=== PATIENT | female | born 1990 | race Caucasian/White ===

== ENCOUNTER 2023-10-03 08:30 | Inpatient (IN) | payer OTHER, SELFPAY ==
[2023-10-03] VITALS (46 sets, daily range): BP systolic 133–212; BP diastolic 57–106; PULSE 53–85; RESP 14–18; TEMP 36.4–37; O2SAT 97–100; BMI 27.8
[2023-10-03 07:59] LABS: Amnisure Rom* POSITIVE
[2023-10-03 08:22] LABS: Hematocrit 39.8 % (33.0-51.0); Hemoglobin* 13.2 gm/dL (12.0-16.0); Mean Corpuscular HGB Conc 33 gm/dL (32-36); Mean Corpuscular Hemoglobin 30 pg (26-34); Mean Corpuscular Volume 89 fL (80-100); Platelet Count* 188 K/uL (140-440); Red Blood Count 4.46 m/uL (4.00-5.20); White Blood Count* 16.23 K/uL (4.50-11.00)
[2023-10-03 08:23] LABS: Slide Review Reflex No
[2023-10-03] MEDS: LACTATED RINGERS 1000 ML 1,000 ML 125 ML IV (08:27)
[2023-10-03] MEDS: AMPICILLIN 2 GM in 0.9 % SODIUM CHLORIDE Mini-bag 100 ML IVPB (08:27)
[2023-10-03] MEDS: BETAMETHASONE SOD PHOS/ACETATE 6 MG/ML ML 12 MG IM (08:28)
[2023-10-03 08:39] LABS: Alanine Aminotransferase* 14 U/L (4-35); Aspartate Amino Transferase* 20 U/L (12-35); Blood Urea Nitrogen* 16 mg/dL (5-24); Creatinine* 0.6 mg/dL (0.5-1.5); Estimated Glomerular Filt Rate 123 ml/min
[2023-10-03 08:40] LABS: Creatinine Urine 19.2 mg/dL
--- NOTE | 2023-10-03 08:42 | PM.OBCN1 ---
OB - CN: HPI Date of Consult Time Seen by Provider: 08:42 Date Seen: 10/03/23 Patient: Luis Manuel Patient Consult date: 10/03/23 Requesting Physician: Christine Snell MD Primary Care Provider: Yajaira Hoty MD Consult Narrative Narrative: The patient is a 32 year old G 1 P 0 at 34 and 1/7 weeks gestation that was admitted to the Center on 10/03/23 for spontaneous rupture of membranes at 5:30 a.m. this morning, clear fluid. GBS status unknown. When she arrived at the Center she began complaining of painful contractions. When the nurse checked her cervix there was no presenting part and the cervix was 5-6 cm dilated the patient was in active labor. On ultrasound the baby's position is transverse, back down. In addition, the patient has elevated blood pressures with a maximum blood pressure of 158/104 most recent blood pressure 138/94. I recommended a primary low-transverse delivery due to malpresentation in active labor. History of Present Dating criteria: based on LMP care: good care Ultrasounds: normal 1st trimester US and normal mid trimester US complications: gestational hypertension History History 2 Elective abortions Para 0 Spontaneous abortions Hx # Term Pregnancies Ectopic pregnancies Hx # Pregnancies Multiple births Number of Living Children 0 PFSH PFSH Surgical History (Updated 10/03/23 @ 08:47 by Christine Snell MD) Status post primary low transverse section (10/03/23) ?Z98.891 - History of uterine scar from previous surgery (ICD-10) Social History Smoking Status: Never smoker Meds Home Medications and Allergies Home Medications ?Medication ?Instructions ?Recorded ?Confirmed ?Type vit no.37-iron fum 29 mg tab PO 10/03/23 History iron-folic acid 1 mg chewable tablet (PreNata) Allergies Allergy/AdvReac Type Severity Reaction Status Date / Time Sulfa (Sulfonamide Allergy Verified 10/03/23 08:12 Antibiotics) OB - H&P: Exam Physical Exam: Vital signs: Temp Pulse BP Pulse Ox 98.1 F 85 158/104 H 99 10/03/23 07:24 10/03/23 08:26 10/03/23 08:26 10/03/23 07:24 Narrative: General: Patient appears uncomfortable with contractions. Vital signs included in the patient's medical record Heart: Regular rate and rhythm without gallop or murmur Chest: Clear to auscultation bilaterally Abdomen: Gravid, tender with contractions. presentation: Back down transverse by bedside ultrasound External monitor: 140s, moderate variability, accelerations: Present, decelerations: Absent, reactive. SVE per nursin-6 cm/75%/high Extremities: No pain, edema, cyanosis or clubbing. OB - Results Labs Labs: Short CBC 10/03/23 Range/Units 08:15 WBC 16.23 H (4.50-11.00) K/uL Hgb 13.2 (12.0-16.0) gm/dL Hct 39.8 (33.0-51.0) % Plt Count 188 (140-440) K/uL OB - CN: A/P Assessment and Plan (1) Gestational hypertension: Status: Acute (2) malpresentation, delivered, current hospitalization: Status: Acute (3) Status post primary low transverse section: Status: Acute (4) premature rupture of membranes (PPROM) with onset of labor after 24 hours of rupture in third trimester, antepartum: Status: Acute (5) labor with term delivery: Status: Deleted Assessment and Plan: 1. Consent form reviewed and signed for primary low-transverse section 2. Will moved to operating room at the earliest convenience. (6) labor in third trimester with delivery: Status: Acute
[2023-10-03 08:46] LABS: Protein Creatinine Ratio Urine 23.23 (0-0.19); Total Protein Urine 446 mg/dL
--- NOTE | 2023-10-03 08:48 | PM.OBHPAP1 ---
OB - H&P; HPI Antepartum History of Present Illness Time Seen by Provider: 08:20 Date Seen: 10/03/23 Chief complaint: maternity Narrative: Nani Zelaya is a 32 yo at 34w1d who presents today with PPROM. Had leaking starting around 5:30 AM today. Fluid was reportedly pink-tinged. Continuing to note clear fluid per vagina. Since arriving the Center, she has developed contractions. Of note, blood pressures have been elevated since arrival including one severe range pressure - initial pressure 176/101, most recent 138/94. History of Present care: good care Labs Blood type: A (+) positive Rubella: immune RPR/VDLR: nonreactive GBS status: unknown HBsAG: negative Meds Home Medications and Allergies Home Medications ?Medication ?Instructions ?Recorded ?Confirmed ?Type vit no.37-iron fum 29 mg tab PO 10/03/23 History iron-folic acid 1 mg chewable tablet (PreNata) Allergies Allergy/AdvReac Type Severity Reaction Status Date / Time Sulfa (Sulfonamide Allergy Verified 10/03/23 08:12 Antibiotics) OB - H&P: Exam Physical Exam: Vital signs: Temp Pulse BP Pulse Ox 98.1 F 72 138/94 H 99 10/03/23 07:24 10/03/23 08:42 10/03/23 08:42 10/03/23 07:24 Narrative: Gen: alert, appears uncomfortable with contractions Resp: unlabored breathing between contractions on room air CV: extremities warm and well perfused Abd: gravid : cervix 5 cm per RN exam Bedside US: fetus in transverse lie with head on maternal L OB - Results Labs Labs: Short CBC 10/03/23 Range/Units 08:15 WBC 16.23 H (4.50-11.00) K/uL Hgb 13.2 (12.0-16.0) gm/dL Hct 39.8 (33.0-51.0) % Plt Count 188 (140-440) K/uL BMP 10/03/23 08:15 BUN 16 Creatinine 0.6 Liver Function 10/03/23 Range/Units 08:15 AST 20 (12-35) U/L ALT 14 (4-35) U/L OB - A/P Antepartum Assessment and Plan (1) labor in third trimester with delivery: Status: Acute (2) premature rupture of membranes (PPROM) with onset of labor after 24 hours of rupture in third trimester, antepartum: Status: Acute (3) Gestational hypertension: Status: Acute Plan OB provider, Dr. Snell notified. Plan to deliver via LTCS. See consult note. Given prematurity, plan to transfer upon delivery. Contacted NICU at [facility]. Spoke with Dr. Ty who accepted patient. Baby will be transported by air.
--- NOTE | 2023-10-03 09:03 | P.PCN_ITS ---
Procedure Note Time Seen by Provider: : Date Seen: 10/03/23 Date of procedure: 10/03/23 Will [facility] bill your pro fee for this procedure?: Yes Procedure: Preoperative diagnosis: [id number]-[id number]-[id number]-old 1 para 0 at 34 and 1/7 weeks PPROM labor malpresentation: back down, transverse Gestational hypertension Postoperative diagnosis: Same Procedure: Primary low-transverse section Anesthesia: Spinal Surgeon: Christine Snell MD Director Of Recruitment And Admissions: PALMER Pompa Quantitative blood loss: 390 mL IV Fluid: 1300 mL UOP: 150 mL Specimen: Placenta to pathology Drain(s): Blair Findings: An internal cephalic version was performed in order to deliver the : The converted from transverse back down with the vertex in the left lower quadrant to vertex for delivery. A live female was delivered from the direct OA position at 9:34 am. Apgars were 7 at 1 min and 8 at 5 min, respectively. Infant was requiring CPAP and transferred to intensive care unit. weight: Pending. Nuchal cord(s): No. The placenta was delivered spontaneously and complete at 9:36 a.m. Amniotic fluid: clear. Normal uterus, fallopian tubes and ovaries were noted. Procedure: Nani was taken to the OR where spinal anesthetic was found be adequate. A Blair catheter was placed. The patient was then placed in the dorsal supine position with a leftward tilt. She was then prepped and draped in a normal sterile manner. A Pfannenstiel skin incision was made and carried through sharply to the underlying layer of fascia. Fascia was incised in the midline and this incision carried laterally with Dc scissors. The superior aspect of fascial incision was grasped with Mauro clamps, tented up, and the rectus muscles dissected off with a combination of blunt and sharp dissection. The inferior aspect of the fascial incision was grasped with Mauro clamps, tented up and again the rectus muscles dissected off with a combination of blunt and sharp dissection. The rectus muscles were in the midline. The peritoneum was entered bluntly. This opening was extended bluntly. An Silvino-O self-retaining retractor was placed. A bladder flap was not created. Uterus was incised in a low transverse manner in the midline. This incision carried laterally with blunt pressure on the inferior and superior aspects of the uterine incision. The amniotic sac was ruptured. An internal cephalic version was performed then the infant's head and body was delivered atraumatically. The cord was clamped and cut immediately. The infant was shown to the patient and her support person and then handed to waiting pediatric and nursing staff. The placenta was delivered spontaneously. The uterus was cleared of clots and debris. The uterine incision was re-approximated with the uterus in vivo. The 1st layer using 0-Vicryl in a running, locked manner. The 2nd layer using 0-Monocryl in a running, vertical, imbricating layer. Additional sutures needed for hemostasis: Yes: 2 [id number] sutures using 0 Vicryl and 2 [id number]-[id number] sutures using 2-0 chromic. Judith was applied to the uterine incision. Excellent hemostasis was verified. The Silvino retractor was removed. The rectus muscles were not reapproximated. The rectus muscles were then closely inspected to verify hemostasis. Hemostasis was obtained with bipolar cautery. The fascia was then re-approximated using 0-Maxon loop in a running manner. The subcutaneous tissue was then irrigated with saline and hemostasis obtained with bipolar cautery. The subcutaneous tissue was re-approximated using 3-0 plain gut interrupted sutures. The skin was reapproximated using 4-0 Monocryl in a running subcuticular manner. Exophin skin adhesive and a Mepaplex dressing were applied. The patient tolerated this procedure well. Sponge, lap and instrument counts were correct x2 active to the procedure. Patient was taken to the recovery area in stable condition. The patient received 2 g of IV Ancef and 500 mg IV azithromycin prior to skin incision.
[2023-10-03] MEDS: CEFAZOLIN 2 GM INJ IVP (09:10)
[2023-10-03] MEDS: AZITHROMYCIN 500 MG in 0.9 % SODIUM CHLORIDE 250 ml 250 ML 255 MG IVPB (09:22)
--- NOTE | 2023-10-03 10:41 | W.PM.NB ---
Nerve Block Nerve Block Time Seen by Provider: 10:25 Date Seen: 10/03/23 Type of block requested by surgeon for post-operative analgesia: TAP Side: bilateral Time out performed: Yes Verification of patient name: Yes Verification of date of : Yes Site marking: not applicable Name of person performing procedure: Spencer Marroquin Continuous monitoring Was continuous monitoring of O2 sat, B/P, lunchroom monitor, recorded every 15 minutes?: Yes Procedure Ultrasound guided. Images saved: Yes Medications given in 5ml increments after negative aspiration: Marcaine %: 0.25 mL: 30 Needle gauge: 20 and Exparel mL: 10 Needle gauge: 20 Patient tolerated procedure well: Yes Block Charges Block Charge (with Pro Fee): TAP Bilateral Use of Ultrasound Machine for Block: Yes- US Guidance/pain block
--- NOTE | 2023-10-03 10:43 | P.ANES_ITS ---
Anesthesia Charges Start Date/Time Anesthesia Start Date: 10/03/23 Anesthesia Start Time: 09:06 Stop Date/Time Anesthesia Stop Date: 10/03/23 Anesthesia Stop Time: 10:33 Summary Emergency: [facility]
--- NOTE | 2023-10-03 11:04 | W.ANESCHARGE ---
Anesthesia Charges Start Date/Time Anesthesia Start Date: 10/03/23 Anesthesia Start Time: 09:06 Stop Date/Time Anesthesia Stop Date: 10/03/23 Anesthesia Stop Time: 10:33 Summary Emergency: MDA
[2023-10-03 11:28] LABS: Total Protein Urine 19 mg/dL
[2023-10-03 11:29] LABS: Creatinine Urine 126.9 mg/dL; Protein Creatinine Ratio Urine 0.15 (0-0.19)
[2023-10-03] MEDS: LABETALOL HCL 5 MG/ML inj IVP ×2 (11:34→12:05)
[2023-10-03] MEDS: MAGNESIUM IV 4 GM/100 ML PIGGYBACK IVPB (12:03)
[2023-10-03] MEDS: NIFEdipine 30 MG TAB.ER.24 PO (12:12)
[2023-10-03] MEDS: MAGNESIUM Infusion 40 GM/1,000 ML IV.SOLN IVPB (13:01)
[2023-10-03] MEDS: ACETAMINOPHEN 500 MG TABLET 1000 MG PO (13:41)
[2023-10-03 13:59] LABS: Hematocrit 37.2 % (33.0-51.0); Hemoglobin* 12.3 gm/dL (12.0-16.0); Mean Corpuscular HGB Conc 33 gm/dL (32-36); Mean Corpuscular Hemoglobin 30 pg (26-34); Mean Corpuscular Volume 90 fL (80-100); Platelet Count* 160 K/uL (140-440); Red Blood Count 4.15 m/uL (4.00-5.20); White Blood Count* 21.04 K/uL (4.50-11.00)
[2023-10-03 14:00] LABS: Slide Review Reflex No
[2023-10-03 14:18] LABS: Creatinine* 0.5 mg/dL (0.5-1.5); Est. Creatinine Clearance* 158.53; Estimated Glomerular Filt Rate 129 ml/min
[2023-10-03 14:19] LABS: Alanine Aminotransferase* 15 U/L (4-35); Aspartate Amino Transferase* 28 U/L (12-35); Blood Urea Nitrogen* 15 mg/dL (5-24)
[2023-10-03] MEDS: ONDANSETRON 2 MG/ML inj 4 MG IVP (14:22)
[2023-10-03] MEDS: KETOROLAC 30 MG/ML inj IVP ×2 (16:31→22:50)
[2023-10-03] MEDS: diphenhydrAMINE 50 MG/ML inj 12.5 MG IVP (17:07)
[2023-10-03 20:47] LABS: Hematocrit 34.8 % (33.0-51.0); Hemoglobin* 11.7 gm/dL (12.0-16.0); Mean Corpuscular HGB Conc 34 gm/dL (32-36); Mean Corpuscular Hemoglobin 30 pg (26-34); Mean Corpuscular Volume 89 fL (80-100); Platelet Count* 143 K/uL (140-440); Red Blood Count 3.92 m/uL (4.00-5.20); White Blood Count* 22.97 K/uL (4.50-11.00)
[2023-10-03 20:49] LABS: Slide Review Reflex No
[2023-10-03 21:02] LABS: Creatinine* 0.6 mg/dL (0.5-1.5); Est. Creatinine Clearance* 132.11; Estimated Glomerular Filt Rate 123 ml/min
[2023-10-03 21:03] LABS: Alanine Aminotransferase* 18 U/L (4-35); Aspartate Amino Transferase* 31 U/L (12-35); Blood Urea Nitrogen* 13 mg/dL (5-24)
[2023-10-03] MEDS: LACTATED RINGERS 1000 ML 1,000 ML 75 ML IV (22:00)
[2023-10-03] MEDS: SODIUM CHLORIDE 0.9 % (FLUSH) 10 ML SYRINGE IVF (22:51)
[2023-10-04] VITALS (15 sets, daily range): BP systolic 120–159; BP diastolic 71–90; PULSE 68–80; RESP 16–18; TEMP 36.9–37.3; O2SAT 96–100
[2023-10-04 02:07] LABS: Hematocrit 32.8 % (33.0-51.0); Mean Corpuscular HGB Conc 34 gm/dL (32-36); Mean Corpuscular Hemoglobin 30 pg (26-34); Mean Corpuscular Volume 89 fL (80-100); Platelet Count* 152 K/uL (140-440); Red Blood Count 3.67 m/uL (4.00-5.20); White Blood Count* 23.64 K/uL (4.50-11.00)
[2023-10-04] MEDS: OXYCODONE 5 MG TABLET PO (02:07)
[2023-10-04] MEDS: ACETAMINOPHEN 500 MG TABLET 1000 MG PO ×4 (02:08→23:28)
[2023-10-04 02:10] LABS: Slide Review Reflex No
[2023-10-04 02:20] LABS: Creatinine* 0.6 mg/dL (0.5-1.5); Est. Creatinine Clearance* 132.11; Estimated Glomerular Filt Rate 123 ml/min
[2023-10-04 02:21] LABS: Alanine Aminotransferase* 26 U/L (4-35); Aspartate Amino Transferase* 30 U/L (12-35); Blood Urea Nitrogen* 12 mg/dL (5-24)
[2023-10-04] MEDS: SODIUM CHLORIDE 0.9 % (FLUSH) 10 ML SYRINGE IVF ×2 (04:28→21:13)
[2023-10-04] MEDS: KETOROLAC 30 MG/ML inj IVP ×3 (04:28→16:27)
[2023-10-04 06:41] LABS: Magnesium* 6.6 mg/dL (1.5-2.6)
[2023-10-04 08:06] LABS: Hematocrit 31.2 % (33.0-51.0); Hemoglobin* 10.4 gm/dL (12.0-16.0); Mean Corpuscular HGB Conc 33 gm/dL (32-36); Mean Corpuscular Hemoglobin 30 pg (26-34); Mean Corpuscular Volume 89 fL (80-100); Platelet Count* 150 K/uL (140-440); Red Blood Count 3.51 m/uL (4.00-5.20); White Blood Count* 21.98 K/uL (4.50-11.00)
[2023-10-04 08:08] LABS: Slide Review Reflex No
[2023-10-04] MEDS: MAGNESIUM Infusion 40 GM/1,000 ML IV.SOLN IVPB (08:14)
--- NOTE | 2023-10-04 08:14 | P.OBPN_ITS ---
OB - PN:Subj Subjective Date Seen: 10/04/23 Interval history: Nani is a 32-year-old G2 now P 0 1 1 1 woman who is postoperative day 1 status post primary low-transverse section for indication of malpresentation after the problem at 34 weeks, 1 day gestation. She was subsequently diagnosed with gestational hypertension with severe features and has been on magnesium sulfate infusion since yesterday afternoon at 12:03 p.m.. She was also started on nifedipine 30 mg ER once daily, given at 0900 today. Narrative: Nani is feeling poorly. She feels dizzy upon standing, and has not been up walking. She has had normal to mildly elevated BPs. She is not eating much and vomited last night. She has catheter in place. She has no SOB or headache. She has tried pumping once. Her baby is at [place], and she is watching her on the remote monitor. OB - PN: Obj Exam Physical Exam: Vital signs: Temp Pulse Resp BP Pulse Ox O2 Del Method 98.4 F 72 18 122/76 98 Room Air 10/04/23 02:01 10/04/23 06:26 10/04/23 06:26 10/04/23 06:26 10/04/23 06:26 10/04/23 06:26 Narrative: General: Subdued, no acute distress Heart: Regular rate and rhythm, no murmur or gallop Lungs: Clear to auscultation bilaterally Abdomen: Intolerant sitting upright or rolling to her side. Normoactive bowel sounds in all 4 quadrants. Slightly distended and tympanic in upper abdomen. Fundus at 2 cm below umbilicus. Appropriately tender. Dressing clean, dry, and intact Lower extremities: No edema or erythema, SCDs in place Urinary Catheter Management: Urethral: Cath placed during this visit: yes Urethral indwelling: Yes Reason for continuing: surgical procedure Insertion date: 10/03/23 Insertion time: 09:19 OB - PN: Obj Data Labs Labs: Laboratory Results - last 24 hr 10/03/23 10/03/23 10/03/23 08:10 08:15 13:49 WBC 16.23 H 21.04 H RBC 4.46 4.15 Hgb 13.2 12.3 Hct 39.8 37.2 MCV 89 90 MCH 30 30 MCHC 33 33 Plt Count 188 160 BUN 16 15 Creatinine 0.6 0.5 Estimated Creat Clear 158.53 Estimated GFR 123 129 Magnesium AST 20 28 ALT 14 15 Urine Creatinine 19.2 Protein/Creatinin Ratio 23.23 H Urine Total Protein 446 Lab Acknowledgement Blood Type A Positive Antibody Screen NEGATIVE 10/03/23 10/03/23 10/04/23 20:20 Unknown 02:00 WBC 22.97 H 23.64 H RBC 3.92 L 3.67 L Hgb 11.7 L 11.0 L Hct 34.8 32.8 L MCV 89 89 MCH 30 30 MCHC 34 34 Plt Count 143 152 BUN 13 12 Creatinine 0.6 0.6 Estimated Creat Clear 132.11 132.11 Estimated GFR 123 123 Magnesium 6.6 H* AST 31 30 ALT 18 26 Urine Creatinine 126.9 Protein/Creatinin Ratio 0.15 Urine Total Protein 19 Lab Acknowledgement Blood Type Antibody Screen 10/04/23 10/04/23 06:19 08:00 WBC 21.98 H RBC 3.51 L Hgb 10.4 L Hct 31.2 L MCV 89 MCH 30 MCHC 33 Plt Count 150 BUN Creatinine Estimated Creat Clear Estimated GFR Magnesium AST ALT Urine Creatinine Protein/Creatinin Ratio Urine Total Protein Lab Acknowledgement Test Added Blood Type Antibody Screen OB - PN: A/P Delivery Assessment and Plan (1) labor in third trimester with delivery: Status: Acute (2) premature rupture of membranes (PPROM) with onset of labor after 24 hours of rupture in third trimester, antepartum: Status: Acute (3) Gestational hypertension: Problem details: Severe BP: s/p magnesium. Status: Acute Assessment and Plan: HELLP labs were normal. She will be maintained on magnesium sulfate infusion until just after noon. Continue strict ins and outs until that time. We will follow her blood pressures after discontinuation of magnesium sulfate to determine if any adjustments are required. Currently, she is on nifedipine ER 30 mg q.a.m.. (4) Status post primary low transverse section: Status: Acute Assessment and Plan: She has had very little postoperative progress with regards to postop milestones. Much of this may be related to intolerance of side effects of magnesium. We will plan for advancing her diet and taking narcotic pain medicines orally with this to allow for better pain control and increased movement. I recommended that she try pumping once again. (5) Anemia associated with acute blood loss: Status: Acute Assessment and Plan: Mild. I did not start her on iron supplementation today due to her nausea and lack of postoperative advancement. This could be considered prior to discharge. Repeat CBC tomorrow. Plan day: 1
[2023-10-04] MEDS: NIFEdipine 30 MG TAB.ER.24 PO ×2 (08:17→21:12)
[2023-10-04 08:22] LABS: Alanine Aminotransferase* 16 U/L (4-35); Aspartate Amino Transferase* 25 U/L (12-35); Blood Urea Nitrogen* 13 mg/dL (5-24); Creatinine* 0.7 mg/dL (0.5-1.5); Est. Creatinine Clearance* 113.24; Estimated Glomerular Filt Rate 119 ml/min
[2023-10-04] MEDS: ONDANSETRON 2 MG/ML inj 4 MG IVP ×2 (11:07→17:01)
[2023-10-04] MEDS: LACTATED RINGERS 1000 ML 1,000 ML 75 ML IV (11:21)
[2023-10-04 11:29] LABS: Strep B DNA Probe Negative (Negative)
[2023-10-04 11:55] LABS: Strep B Susceptibility Needed? No
[2023-10-04 16:59] LABS: Rapid Plasma Reagin (RPR) Non Reactive (Non Reactive)
[2023-10-04] MEDS: LABETALOL HCL 100 MG TABLET PO ×2 (17:38→21:12)
[2023-10-04] MEDS: IBUPROFEN 600 MG TABLET PO (20:47)
[2023-10-05] MEDS: IBUPROFEN 600 MG TABLET PO ×4 (02:29→22:37)
[2023-10-05 04:15] VITALS: BP 120/72; PULSE 68; RESP 16; TEMP 36.6; O2SAT 96
[2023-10-05] MEDS: ONDANSETRON 2 MG/ML inj 4 MG IVP ×3 (04:55→19:18)
[2023-10-05] MEDS: ACETAMINOPHEN 500 MG TABLET 1000 MG PO ×3 (05:39→20:34)
[2023-10-05 06:26] LABS: Basophils Percent Auto 0.1 % (0.0-3.0); Eosinophils Percent Auto 0.1 % (0.0-7.0); Hematocrit 31.8 % (33.0-51.0); Hemoglobin* 10.5 gm/dL (12.0-16.0); Lymphocytes Percent Auto 9.5 % (20-44); Mean Corpuscular HGB Conc 33 gm/dL (32-36); Mean Corpuscular Hemoglobin 30 pg (26-34); Mean Corpuscular Volume 91 fL (80-100); Neutrophils Percent Auto 83.3 % (42.0-72.0); Platelet Count* 171 K/uL (140-440); RDW Coefficient of Variation % 15.5 % (11.5-15.5); Red Blood Count 3.51 m/uL (4.00-5.20); White Blood Count* 18.48 K/uL (4.50-11.00)
[2023-10-05 06:31] LABS: Slide Review Reflex No
[2023-10-05 08:37] VITALS: BP 134/82; PULSE 76; RESP 12; TEMP 36.9
[2023-10-05] MEDS: NIFEdipine 30 MG TAB.ER.24 PO ×2 (08:42→21:02)
[2023-10-05] MEDS: DOCUSATE SODIUM 100 MG CAPSULE PO (08:42)
[2023-10-05] MEDS: LABETALOL HCL 100 MG TABLET PO ×3 (08:42→21:02)
[2023-10-05 12:44] VITALS: BP 116/72; PULSE 69; RESP 12; TEMP 37.3
--- NOTE | 2023-10-05 16:15 | PM.OBPNVD1 ---
OB - PN:Subj Subjective Time Seen by Provider: 07:00 Date Seen: 10/05/23 Interval history: Nani is a 32-year-old G2 now P 0 1 1 1 woman who is postoperative day 2 status post primary low-transverse section for indication of malpresentation after the problem at 34 weeks, 1 day gestation. She was subsequently diagnosed with gestational hypertension with severe features and has been on magnesium sulfate infusion since yesterday afternoon at 12:03 p.m.. She is s/p 24 hours of magnesium sulfate for seizure prophylaxis. Postoperatively she has struggled with advancing milestones. She needs a lot of assistance with mobility. Being discharged makes her very nervous as there will be less people to help her. Her daughter is currently at [facility] in [place]. Overnight patient felt better than she did while on magnesium sulfate. Her pain is well controlled on oral pain medications when she's in bed but reports pain that makes her hesitant to move too much. She is tolerating a regular diet. She has passed flatus. She is ambulating with difficulty and needing assistance due to fear of pain. Lochia is scant. She is urinating without alexis. Patient denies chest pain, SOB, n/v, headache, RUQ pain, vision changes, dizziness. She would like to stay another day as she reports being overwhelmed by the prospect of having to do more on her own. OB - PN: Obj Exam Physical Exam: Vital signs: Temp Pulse Resp BP Pulse Ox O2 Del Method 99.1 F 69 12 116/72 96 Room Air 10/05/23 12:44 10/05/23 12:44 10/05/23 12:44 10/05/23 12:44 10/05/23 04:15 10/05/23 04:15 Narrative: Physical exam: General: Tearful when discussing discharge. Psych: Alert and oriented x4, full affect HEENT: Normocephalic, atraumatic Neck: No cervical adenopathy, no thyromegaly Heart: Regular rate and rhythm, no murmur rub or gallop Lungs: Clear to auscultation bilaterally Abdomen: Normoactive bowel sounds, soft, no tenderness, rebound, or guarding. Incision: Appropriately tender to palpation. Clean, dry, and intact. No erythema, induration, or abnormal discharge/breakdown. Skin: No lesions or rashes Lower extremities: No edema or erythema Pelvic exam: No bleeding on pad Urinary Catheter Management: Urethral: Cath placed during this visit: yes Urethral indwelling: Yes Reason for continuing: surgical procedure Insertion date: 10/03/23 Insertion time: 09:19 OB - PN: Obj Data Labs Labs: Laboratory Results - last 24 hr 10/03/23 10/05/23 08:15 06:15 WBC 18.48 H RBC 3.51 L Hgb 10.5 L Hct 31.8 L MCV 91 MCH 30 MCHC 33 RDW Coeff of Reji 15.5 Plt Count 171 Neut % (Auto) 83.3 H Lymph % (Auto) 9.5 L [place] % (Auto) 6.0 Eos % (Auto) 0.1 Baso % (Auto) 0.1 Neut # (Auto) 15.40 H Lymph # (Auto) 1.80 [place] # (Auto) 1.10 H Eos # (Auto) 0.00 Baso # (Auto) 0.00 Abs Immat Gran (auto) 0.20 Imm/Tot Granulo (auto) 1.0 RPR Screen Non Reactive OB - PN: A/P Delivery Assessment and Plan (1) labor in third trimester with delivery: Status: Acute (2) Gestational hypertension: Problem details: Severe BP: s/p magnesium. Status: Acute Assessment and Plan: - BP wnl on Nifedipine XL 30 mg BID and Labetalol 100 mg TID (3) Status post primary low transverse section: Status: Acute Assessment and Plan: - POD#2. Would like to stay another day due to still needing assist with ambulation 2/2 to pain. She is making progress but not ready to take care of a baby in the NICU. (4) Anemia associated with acute blood loss: Status: Acute Assessment and Plan: - Hgb 10.5 today. - On PO iron
[2023-10-05 16:17] VITALS: BP 115/75; PULSE 65; RESP 12; TEMP 37.1
[2023-10-05] MEDS: SIMETHICONE 80 MG TAB.CHEW PO (17:21)
[2023-10-05] MEDS: SODIUM CHLORIDE 0.9 % (FLUSH) 10 ML SYRINGE IVF (19:21)
[2023-10-05 20:02] VITALS: BP 139/87; PULSE 64; RESP 16; TEMP 36.7; O2SAT 97
[2023-10-06 00:30] VITALS: BP 131/81; PULSE 73; RESP 16; TEMP 36.6; O2SAT 97
[2023-10-06] MEDS: ACETAMINOPHEN 500 MG TABLET 1000 MG PO ×2 (02:40→08:27)
[2023-10-06 03:54] VITALS: BP 119/75; PULSE 65; RESP 16; TEMP 36.6; O2SAT 97
[2023-10-06] MEDS: IBUPROFEN 600 MG TABLET PO ×2 (04:01→12:00)
[2023-10-06] MEDS: ONDANSETRON 2 MG/ML inj 4 MG IVP ×2 (06:33→13:19)
[2023-10-06 08:11] VITALS: BP 138/89; PULSE 92; RESP 20; TEMP 36.7; O2SAT 98
[2023-10-06] MEDS: NIFEdipine 30 MG TAB.ER.24 PO (08:29)
[2023-10-06] MEDS: LABETALOL HCL 100 MG TABLET PO ×2 (08:29→13:30)
[2023-10-06] MEDS: DOCUSATE SODIUM 100 MG CAPSULE PO (08:29)
[2023-10-06] MEDS: OXYCODONE 5 MG TABLET PO ×2 (08:33→14:18)
[2023-10-06] MEDS: hydrOXYzine pamoate 25 MG CAPSULE 100 MG PO (08:45)
--- NOTE | 2023-10-06 09:39 | P.DS_ITS ---
DS: Providers Provider Time Seen by Provider: 09:00 Date Seen: 10/06/23 Date of admission: 10/03/23 08:30 Primary care physician: Yajaira Hoyt MD Admitting Clinician: Yi Briceno DO Attending Physician on discharge: Olga Schrader MD Exam Narrative: Exam Narrative: General: Alert and oriented, in no acute distress. Shifts position around in bed. Psych: Flat affect, poor eye contact. Appropriate thought content and speech pattern. Mood is described as low to anxious. No suicidal ideation. Heart: Regular rate rhythm, no rubs murmurs or gallops Lungs: Clear to posterior auscultation throughout Abdomen: Soft, nondistended. Tender palpation in the lower quadrants consistent with postoperative state. No rebound or guarding. Fundus at 1 below umbilicus. Incision is intact and healing appropriately, no erythema, ecchymosis or drainage. Const: Vital Signs, click to edit/add: Vital Signs - 24 hr 10/05/23 12:44 10/05/23 16:17 10/05/23 20:02 Temperature 99.1 F 98.8 F 98.1 F Pulse Rate [Pulse Oximeter] 69 65 64 Respiratory Rate 12 12 16 Blood Pressure [Le ft Arm] 116/72 115/75 139/87 Pulse Oximetry 97 Oxygen Delivery Me thod Room Air 10/06/23 00:30 10/06/23 03:54 10/06/23 08:11 Temperature 98 F 97.9 F 98.0 F Pulse Rate [Pulse Oximeter] 73 65 92 Respiratory Rate 16 16 20 Blood Pressure [Le ft Arm] 131/81 119/75 138/89 Pulse Oximetry 97 97 98 Oxygen Delivery Me thod Room Air Room Air Room Air OB - DS: Summary Hospital Course Hospital Course: Ms. Zelaya is a 32yo s/p primary C/S on 10/02 for PPROM and malpresentation. she has developed severe gestational hypertension, s/p magnesium sulfate (ending 1200 on 10/03). Her BP regimen has been escalated to nifedipine XL 30mg BID and labetolol 100mg TID. Pressures have been entirely within normal limits over the last 24 hours on above antihypertensive regimen. She has no headache, vision changes or right upper quadrant pain. She notes her abdominal pain is relatively well controlled, on ibuprofen, Tylenol and status post 1 dose of oxycodone this morning. She is tolerating p.o. solids in small volumes and liquids, no nausea vomiting. She notes she does not have a big appetite since delivery. She is voiding without difficulty. Passing flatus and bowel movement x1. Ambulates without dizziness or lightheadedness. With regard to mood, Nani notes she feels all over. She has a history of mood disorder where she trial of fluoxetine in the past, but notes she did not have much response due to the suboptimal compliance. Notes improvement of her anxiety and history of panic attacks with Ativan previously. She notes episodes of low mood and at times feels more hot and anxious. The symptoms have been present and unchanged since her delivery, notes it has not really gotten worse or better. She has a hard time talking about her daughter because of mood concerns, who was in the NICU and she notes she is unsure how she is doing. She just received 100 mg of Vistaril for anxiety, cannot say at if this has helped yet. She notes talk therapy has not been helpful previously, declined referral today. She would be open to trial of an SSRI, where we discussed options and ultimately will proceed with sertraline 50 mg daily. She is clear and consistent that she has no thoughts of or suicidal/homicidal ideation. She feels well supported by her and family. Peripartum Data delivery method: Primary C/S; Labored (PPROM, 5cm dilated) Procedures: Procedures Operation Date: 10/03/23 09:15 Actual Procedure Side Surgeon p Section Christine Snell MD [place] [facility] Gender: Female Time Spent with Patient Time attestation: Total time spent providing and/or coordinating discharge services: 30 mins Discharge Plan Discharge Disposition: Home, Self-Care Date of Admission: 10/03/23 08:30 Primary Care Provider: Yajaira Hoyt Condition: Stable Anticipated Discharge Date/Time: 10/06/23 09:57 Discharge Medications: New hydroxyzine pamoate 25 mg Capsule 100 mg PO Q8H PRNQty: 15 0RF nifedipine 30 mg Tablet Extended Release 24hr 30 mg PO BID Qty: 60 0RF labetalol 100 mg Tablet 100 mg PO TID Qty: 60 0RF oxycodone 5 mg Tablet 5 mg PO Q4H PRN (Reason: Pain) Qty: 10 0RF sertraline 50 mg Tablet 50 mg PO DAILY Qty: 30 0RF Continued PreNata 29 mg iron- 1 mg tablet,chewable 1 tab PO DAILY Discharge Orders: Discharge Order (Routine); Ordered 10/06/23 Ordered By: Roula Schrader Additional Instructions: Discharge instructions were reviewed with the patient including signs and symptoms of infection and home going medications Lifting Restrictions: 20 pounds for 6 weeks No not submerge incision under water X 2 weeks? Nothing vaginally for 6 weeks: no tampons or intercourse Do not drive while taking narcotic pain medication(s) Off Work or School for 8 weeks Symptoms to report to doctor: * Bleeding that saturates more than one pad per hour * Passing clots larger than the size of a golf ball * Pain not relieved by prescribed medication * Fever above 100.4 degrees Fahrenheit * A foul vaginal odor * Difficulty in emotions, mood, and functions * Thoughts of hurting yourself and/or * Painful, reddened area in your breast * Any drainage, redness, or tenderness in your IV/epidural site * Severe headache that doesn't improve after taking medications * Changes in vision, including temporary loss of vision, blurred vision, and/or light sensitivity * Upper abdominal pain (usually under ribs on the right side) * Decrease in urination or painful, frequent urinating * Chest pain * Shortness of breath * Tenderness or pain with redness and/swelling in the calf(s) of your leg Follow Up in [facility] ([facility]) for a BP check on 10/10/23 Call with BP greater than or equal to 160/110 2-week visit ([facility]): incision check, discuss infant feeding concerns, review control options and discuss anxiety/depression. With your [facility] provider: 6-week visit for an annual exam. consultation services are available to all mothers and babies for the first year after delivery.? To make an appointment, please call [phone]. Follow Up Appointments: Yajaira Hoyt MD [Primary Care Provider] - Forms: [employer] Info Instructions
[2023-10-06] MEDS: SERTRALINE 50 MG TABLET PO (10:21)
== END 2023-10-06 14:15 | disposition home or self-care (01) | DRG 786 ==
LOC: OB OUT 08:40 → OB 08:40
PROVIDERS: Obstetrics & Gynecology; Admitting Provider Family Medicine; PCP Family Medicine; Visit Provider Obstetrics & Gynecology
PROC: 10D00Z1 Extraction of Products of Conception, Low, Open Approach (ICD-10-PCS; CPT 59514; principal; 2023-10-03 09:00)
DX: O42.113 Preterm premature rupture of membranes, onset of labor more than 24 hours following rupture, third trimester (principal); O60.14X0 Preterm labor third trimester with preterm delivery third trimester, not applicable or unspecified; D62 Acute posthemorrhagic anemia; O32.8XX0 Maternal care for other malpresentation of fetus, not applicable or unspecified; O13.4 Gestational [pregnancy-induced] hypertension without significant proteinuria, complicating childbirth; O90.81 Anemia of the puerperium; O99.344 Other mental disorders complicating childbirth; F39 Unspecified mood [affective] disorder; Z37.0 Single live birth; Z3A.34 34 weeks gestation of pregnancy; G89.18 Other acute postprocedural pain
CPT/HCPCS: 01961; 36415; 64488; 76815; 76942; 82565; 82570; 83735; 84112; 84156; 84450; 84460; 84520; 85018; 85025; 85027; 86592; 86850; 86900; 86901; 87081; 87653; 88307; 99140; A9270; C9290; J0290; J0456; J0665; J0690; J0702; J1200; J1885; J2274; J2371; J2405; J2590; J3475; J7050; J7120